=== PATIENT | female | born 1995 | race Caucasian/White ===

== ENCOUNTER 2024-08-23 17:02 | Emergency (ER) | payer BC ==
[~2024-08-23] VITALS: Ht 165.1 cm; Wt 74.4 kg
[2024-08-23 17:05] VITALS: O2SAT 99
== END 2024-08-23 18:32 | disposition left against medical advice (07) ==
LOC: ER 17:24
DX: Z04.3 Encounter for examination and observation following other accident (principal); Z53.21 Procedure and treatment not carried out due to patient leaving prior to being seen by health care provider
CPT/HCPCS: A4606; A4663